=== PATIENT | male | born 1955 | race Caucasian/White ===

== ENCOUNTER 2018-03-31 07:51 | Day surgery (SDC) | payer BC ==
[~2018-03-31] VITALS: Ht 177.8 cm; Wt 119.0 kg
[2018-03-31] VITALS (264 sets, daily range): BP systolic 120–148; BP diastolic 57–86; PULSE 59–76; TEMP 98–98.7; O2SAT 90–98
[~2018-03-31 07:51] MED LIST: ASPIR-LOW81 MG PO; ASPIRIN E.C. 8181 MG PO; FERROUS SU325 MG/TAB PO; FISH OIL CONC1000 MG PO; FOLIC ACID 40400 MCG PO; FOLIC ACID PO; PRAVACHOL 40MG40 MG PO; PREDNISONE20 MG PO; PRINIVIL10 MG PO; VITAMIN C500 MG PO
[2018-03-31] MEDS ORDERED: NITROSTAT0.4 MG/TAB SL (08:14)
[2018-03-31] MEDS ORDERED: ADVIL200 MG PO (08:16)
[2018-03-31] MEDS ORDERED: HCTZ12.5TAB PO (08:20)
[2018-03-31 08:21] LABS: HEMOGLOBIN 15.4 g/dl (13.5-18.0); MEAN CELL VOLUME 86 fl (80.0-100.0); MEAN CORPUSCULAR HEMOGLOBIN 30 pg (27.0-31.0); MEAN CORPUSCULAR HGB CONC 34 g/dl (33.0-37.0); MEAN PLATELET VOLUME 10.2 fl (7.4-10.4); PLATELET COUNT 233 K/mm3 (130-400); RED BLOOD COUNT 5.21 M/mm3 (4.20-5.60); REDCELL DISTRIBUTION WIDTH-CV 12.7 % (11.5-14.5)
[2018-03-31 08:29] LABS: INR 0.9 (0.8-3.0); PROTHROMBIN TIME 10.3 SECONDS (9.7-12.8)
[2018-03-31 08:39] LABS: CALCIUM 8.9 mg/dL (8.4-10.2); CREATININE, serum 0.93 mg/dL (0.66-1.25); POTASSIUM 4.6 mmol/L (3.4-5.0)
--- NOTE | 2018-03-31 10:56 | NUR ---
ALL MEDICATIONS GIVEN VIA VERBAL ORDER WITH READBACK WITH MD. SEE MERGE FOR ALL MEDICATION ADMIN TIMES. SEE MERGE FOR RASS ASSESSMENT DURING AND AFTER PROCEDURE.
--- NOTE | 2018-03-31 12:35 | NUR ---
Pt returned to EU 12 per bed s/p heart cath. Pt waiting for ICU bed. Pt resting well, family at bedside.
--- NOTE | 2018-03-31 13:25 | NUR ---
Pt transfered to ICU 4 per ambulation with Angie Jimenez RN.
--- NOTE | 2018-03-31 13:30 | NUR ---
Report recieved from YURIY Junior from [facility]. Pt ambulated from [facility] to ICU 4, stopping at bathroom to urinate, without difficulty or shortness of breath observed or stated by pt. Pt is AAOx4 accompanied by spouse and son. Radial site stable with TR-Band in place. Call light within reach. Pt educated to call to use bathroom, pt verbally agrees. Education also provided on Right wrist limitations, pt verbally agrees.
--- NOTE | 2018-03-31 19:20 | NUR ---
Bedside report received from Anmol. Pt is sitting on the side of the bed at this time. Spouse entered the room during report and was introduced by pt. Pt currently has right wrist immobilizer in place. Questions encouraged although pt denies any at this time.
--- NOTE | 2018-03-31 20:20 | NUR ---
Pt assessment complete. Pt resting in bed at this time. No visitors in room. Denies any complaints or questions.
[2018-04-01] VITALS (22 sets, daily range): BP systolic 119–131; BP diastolic 69–76; PULSE 32–90; TEMP 97.5–98.6; O2SAT 91–94
--- NOTE | 2018-04-01 01:45 | NUR ---
Phone report provided to Socorro YAN.
--- NOTE | 2018-04-01 02:05 | NUR ---
Pt was assisted with gathering items and transfered to medical bed 316. Offered to notify spouse of transfer to the floor although pt declined stating "I will call her when it gets a little later in the morning." Pt was tx via wheelchair assisted by this nurse with personal belongings. Once pt arrived to medical floor pt ambulated to closet to put belongings away and medical floor TEST CELL TECHNICIAN arrived at bedside. Chart handed off to Socorro, pts accepting nurse.
--- NOTE | 2018-04-01 02:13 | NUR ---
Patient arrived to room. Ambulatory. Alert and oriented x4. Right radial site, immobilizer on witha bandaid C/D/I. IV to left AC, no redness/edema. Denies pain. Going to sleep. No further needs at this time.
--- NOTE | 2018-04-01 05:06 | NUR ---
Patient able to sleep this morning after transfer from ICU. NO reports of pain. No needs at this time.
--- NOTE | 2018-04-01 08:09 | NUR ---
Pt is awake and A/Ox4, sitting up in bed. He denies pain or discomfort. He denies SOB. Saline lock to left AC is free of complications. Right radial cath site is free of complications, small bruise noted. Soft to touch. Pt updated on plan of care by Dr. Almazan, expressed understanding. Denies any other needs.
[2018-04-01] MEDS ORDERED: BRILINTA90 MG PO (08:17)
[2018-04-01] MEDS ORDERED: LIPITOR20 MG PO (08:18)
[2018-04-01] MEDS ORDERED: TOPROL XL 25MG25 MG PO (08:19)
--- NOTE | 2018-04-01 09:51 | NUR ---
Pt was discharged home from hospital. All discharge instructions and paperwork was reviewed with pt and his , both expressed understanding and had no questions. Medications reviewed. New Rx sent electronically to pharm. Saline lock was removed, catheter tip intact. Pt was escorted out of facility by staff.
--- NOTE | 2018-04-01 10:06 | NUR ---
First visit from the insurance customer service specialist. No needs right now.
--- NOTE | 2018-04-01 13:42 | NUR ---
SW unable to meet with patient before discharge.
== END 2018-04-01 09:52 | disposition home or self-care (01) ==
LOC: COL.CAR 07:51 → ICU 13:36 → MEDICAL 04-01 02:10 → COL.CAR 04-01 09:52
PROVIDERS: Internal Medicine Cardiovascular Disease
DX: I25.119 Atherosclerotic heart disease of native coronary artery with unspecified angina pectoris (principal); I10 Essential (primary) hypertension; E78.5 Hyperlipidemia, unspecified; G47.33 Obstructive sleep apnea (adult) (pediatric); E66.9 Obesity, unspecified
CPT/HCPCS: OP; C1725; C1769; C1874; C1887; C9600; J1644; J2250; J3010; Q9967